=== PATIENT | male | born 1960 | race Caucasian/White ===

== ENCOUNTER 2022-08-29 06:10 | Inpatient (IN) | payer OTHER ==
[2022-08-29] VITALS (17 sets, daily range): BP systolic 95–141; BP diastolic 70–102
[~2022-08-29] VITALS: Ht 175.3 cm; Wt 127.5 kg
[2022-08-29 07:29] LABS: Thyroid Stimulating Hormone 1.11 uIU/mL (0.360-4.800)
[2022-08-29 07:30] LABS: Albumin, Blood 3.6 g/dL (3.4-5.0); Albumin/Globulin Ratio 1.1 (0.8-1.8); Bilirubin, Total 1.1 mg/dL (0.1-1.0); Calcium, Blood 8.7 mg/dL (8.5-10.1); Creatinine, Blood 0.76 mg/dL (0.60-1.20); Globulin, Blood 3.4 g/dL (2.2-4.0); Potassium, Blood 5.6 mmol/L (3.5-5.5)
[2022-08-29 07:44] LABS: Hematocrit 38.1 % (37.0-53.0); Hemoglobin 12.7 g/dL (13.5-17.5); Mean Corpuscular HGB 31.1 pg (26.0-34.0); Mean Corpuscular HGB Conc 33.3 g/dL (31.5-36.5); Mean Corpuscular Volume 93 fL (80-100); Platelet Count 167 K/mm3 (150-400); RDW Coefficient Variation 13.5 % (11.7-14.2); RDW Standard Deviation 46.4 fL (35.1-46.3); Red Blood Cell Count 4.08 M/mm3 (4.30-5.90)
[2022-08-29 08:07] LABS: BASOPHILS PERCENT MAN 1 % (0-2); EOSINOPHILS PERCENT MAN 0 % (0-6); LYMPHOCYTES PERCENT MAN 36 % (21-46); MONOCYTES PERCENT MAN 12 % (4-13); SEG NEUTROPHILS PERCENT MAN 51 % (41-73); TOTAL CELLS COUNTED 100
[2022-08-29 08:08] LABS: BASOPHILS ABSOLUTE AUTO 0.02 K/mm3 (0.00-0.23); BASOPHILS PERCENT AUTO 0 % (0-2); EOSINOPHILS ABSOLUTE AUTO 0.05 K/mm3 (0.00-0.68); EOSINOPHILS PERCENT AUTO 1 % (0-6); IMMATURE GRAN ABSOLUTE AUTO 0.03 K/mm3 (0.00-0.10); IMMATURE GRAN PERCENT AUTO 1 % (0-1); LYMPHOCYTES PERCENT AUTO 24 % (21-46); MONOCYTES ABSOLUTE AUTO 0.54 K/mm3 (0.16-1.47); MONOCYTES PERCENT AUTO 8 % (4-13); Mean Platelet Volume 14.2 fL (9.1-12.4); NEUTROPHILS ABSOLUTE AUTO 4.31 K/mm3 (1.96-9.15); NEUTROPHILS ABSOLUTE MAN 3.34 K/mm3 (1.96-9.15); NEUTROPHILS PERCENT AUTO 66 % (41-73); White Blood Cell Count 6.55 K/mm3 (4.00-11.30)
[2022-08-29 11:17] LABS: Anti-Xa UFH, PHA Monitoring <0.10 IU/mL; International Normalized Ratio 1.15
--- NOTE | 2022-08-29 12:11 | NUR ---
ASSUMED CARE: PT ARRIVED TO ROOM FROM ED. HR AFIB IN 140S-160S. TELE MONITOR CALLED AND STATED PT HAD 6 BEAT RUN OF VTACH. CARDIZEM GTT IS CURRENTLY AT 15 MG/HR. CALL TO DR BLANCHARD TO ADDRESS THIS AND SHE STATES SHE IS WITH NITRATE OPERATOR TO DISCUSS PT. AWAITING FURTHER ORDERS.
--- NOTE | 2022-08-29 13:46 | NUR ---
CALL TO DR BLANCHARD REGARDING PT'S HR. STATES SHE SPOKE WITH DR RUSH AND HE WAS CONSIDERING PLACING PT ON AMIODORONE. CALL TO DR RUSH WHO STATED HE WANTED TO COME SEE PT FIRST AND DETERMINE HEALTH HISTORY BEFORE ORDERING AMIODORONE. STATED NO NEW ORDERS AT THIS TIME AND AWARE THAT HR IS 140S-160S.
--- NOTE | 2022-08-29 16:47 | NUR ---
ECOMMERCE MARKETING SPECIALIST CALLED NURSE TO ALERT OF O2 SATURATION AT 83%. PT'S STATES PT SNORES AT HOME AND THAT SMOKED MEAT PREPARER TOLD THEM HE WAS SUSPICIOUS THAT PT HAS SLEEP APNEA. PLACED PT ON 2L O2 WITH SLEEP. RT AWARE.
--- NOTE | 2022-08-29 18:01 | NUR ---
CALL TO DR RUSH TO MAKE HIM AWARE OF PT'S HR SUSTAINING 140S EVEN WITH AMIODORONE GTT. DR INSTRUCTS TO GIVE ONE DOSE OF IV LOPRESSOR NOW AND REPEAT IN 30 MINUTES IF STILL TACHYCARDIC. PLAN IS FOR MAUDE AND CARDIOVERSION TOMORROW IF OK WITH ONCOMING DR. PT DENIES COMPLAINTS AT THIS TIME.
[2022-08-30] VITALS (11 sets, daily range): BP systolic 119–149; BP diastolic 67–135
[2022-08-30 01:47] LABS: BASOPHILS ABSOLUTE AUTO 0.02 K/mm3 (0.00-0.23); BASOPHILS PERCENT AUTO 0 % (0-2); EOSINOPHILS ABSOLUTE AUTO 0.04 K/mm3 (0.00-0.68); EOSINOPHILS PERCENT AUTO 1 % (0-6); Hemoglobin 12.6 g/dL (13.5-17.5); IMMATURE GRAN ABSOLUTE AUTO 0.04 K/mm3 (0.00-0.10); IMMATURE GRAN PERCENT AUTO 1 % (0-1); LYMPHOCYTES ABSOLUTE AUTO 1.73 K/mm3 (0.84-5.20); LYMPHOCYTES PERCENT AUTO 26 % (21-46); MONOCYTES PERCENT AUTO 9 % (4-13); Mean Corpuscular HGB 31.1 pg (26.0-34.0); Mean Corpuscular HGB Conc 33.2 g/dL (31.5-36.5); Mean Corpuscular Volume 94 fL (80-100); NEUTROPHILS ABSOLUTE AUTO 4.35 K/mm3 (1.96-9.15); NEUTROPHILS PERCENT AUTO 64 % (41-73); Platelet Count 153 K/mm3 (150-400); RDW Coefficient Variation 13.7 % (11.7-14.2); RDW Standard Deviation 47.6 fL (35.1-46.3); Red Blood Cell Count 4.05 M/mm3 (4.30-5.90); White Blood Cell Count 6.78 K/mm3 (4.00-11.30)
[2022-08-30 02:03] LABS: Magnesium, Blood 1.8 mg/dL (1.6-2.4)
[2022-08-30 02:15] LABS: Bun/Creatinine Ratio 23.9 (12.0-20.0); Calcium, Blood 8.5 mg/dL (8.5-10.1); Creatinine, Blood 0.96 mg/dL (0.60-1.20); Potassium, Blood 4.1 mmol/L (3.5-5.5)
--- NOTE | 2022-08-30 04:43 | NUR ---
SHIFT SUMMARY: PT ALERT AND ORIENTED X4, ABLE TO FOLLOW COMMANDS AND MAKE NEEDS KNOWN. BP STABLE, HR REMAINS AFIB 120'S-140'S, AFEBRILE, SATS >94% ON 2L NC. LOPRESSOR PUSH GIVEN X2 AT START OF SHIFT WITH LITTLE EFFECT. PT COMPLAINING OF INCREASING SHORTNESS OF BREATH AROUND 0000. CALL PLACED TO MD WITH UPDATE, NO NEW ORDERS RECEIVED. PT WITH MUTIPLE 4-8 BEAT RUNS OF VTACH THROUGHOUT THE NIGHT, ASYMPTOMATIC. REMAINS ON AMIO AND HEPARIN DRIP. PLAN FOR MAUDE AND CARDIOVERSION TODAY, PT NPO SINCE MIDNIGHT. SBA TO AND FROM BATHROOM, NO BM THIS SHIFT. BED IN LOW, CALL LIGHT IN REACH, WILL REPORT TO ONCOMING RN.
--- NOTE | 2022-08-30 07:36 | NUR ---
Received report from Noc Rn. Patient sitting up in bed watching TV. He is alert and oriented and is able to communicate his needs. He is independent in room with bathroom and repositioning. Family at bedside. MAEW. BENOIT. He has bilateral 20ga IV in both hands and infusing Heparin at 15 units/kg/hr and Amiodarone at 0.5 mg/hr HR 140-150's with symptomatic SOB.
--- NOTE | 2022-08-30 11:30 | NUR ---
Patient awake and sitting up in bed and has family at bedside. He is on RA and sats >90%. He continues on Heparin at 15 units/kg/min and Amiodarone at 1 mg/hr that Dr Ugalde increased at 0830. He is to have cardioversion today if ansesthesia is available. He remains in a-fib 130-150's and denies SOB currently. He is NPO per procedure. He has been up to bathroom with assistance.
--- NOTE | 2022-08-30 14:31 | NUR ---
Dr Ugalde called and wanted Amiodarone ge and received at 1322. he went to computer lab assistant with spouse at 1415 by wheelchair. VSS. He was just up to bathroom independently.
--- NOTE | 2022-08-30 15:21 | NUR ---
[id number] PATIENT WAS BROUGHT TO THE CATHLAB/TREATMENT ROOM BY WHEEL CHAIR BY CAMILLE COYLE RN ON HEPARIN AND AMIODARONE GTTS. WALKED TO THE BED AND PLACED ON MONITOR, IV, O2, AND DEFIB MONITOR AND MAUDE/ECHO MACHINE. PATIENT WAS INTERVIEWED AND CONSENTED BY ANESTHESIA AND CONSENT SIGNED. DR. MILLER, ANESTHESIA AND ECHO AND NURSING PERSONNEL ALL AT THE BEDSIDE AND PROCEDURE BEGUN. SEE SEDATION/PRECEDURE RECORD. PATIETN WAS RECOVERED IN THE [facility] BY CELESTE NIELSEN RN [facility] SBAR GIVEN TO CAMILLE COYLE RN. @ [phone]
--- NOTE | 2022-08-30 15:46 | NUR ---
Patient arrived back from cardioversion procedure via wheelchair and he is in SR 70's and EKG being done. Spoke with Dr Ugalde and patient will stay on Amiodarone at 1mg and will change to 0.5 at 2100 today. He will remain on Heparin at 15 units/kg/hr. He continues to be indepentent in room.
--- NOTE | 2022-08-30 18:26 | NUR ---
Patient remains in SR 70 and denies any SOB. He is on RA and sats >90%. He remains independent in room and by his side. Will pass on to reduce amiodarone down to 0.5 at 2100 for 18 hours. He tolerated dinner without any difficulty. His PowerGlide THAO infusing Amiodarone and left hand infusing Heparine at 15 units/kg/hr until tomorrow when Dr Ugalde re-evaluates.
[2022-08-31 03:27] VITALS: BP 143/72
--- NOTE | 2022-08-31 04:28 | NUR ---
SHIFT SUMMARY: PT REMAINS ALERT AND ORIENTED X4, BP STABLE, HR REMAINS SR 70'S THROUGHOUT THE NIGHT, NO COMPLAINTS OF CP/PRESSURE/SOB. AFEBRILE, SATS >96% ON 2L NC. AMIO TITRATED TO 17.3 ML/HR AT 2100 PER ORDERS. HEPARIN REMAINS AT 15 UNITS/HR. PT ABLE TO SLEEP MAJORITY OF THE NIGHT. SBA TO AND FROM BATHROOM. BED IN LOW, CALL LIGHT IN REACH, WILL REPORT TO ONCOMING RN.
[2022-08-31 07:57] VITALS: BP 136/77
--- NOTE | 2022-08-31 08:09 | NUR ---
AM NOTE PT ALERT, ORIENTED X4; CALM AND COOPERATIVE WITH CARE. PT RESTING IN BED, UP IN ROOM WITH SBA. PT DENIES PAIN, CHEST PAIN/PRESSURE, SOB, NAUSEA, DIZZINESS AND NUMB/TINGLING. TELE SINUS 70'S, BP STABLE. NO EDEMA NOTED. SPO2 >90% ON RA, BREATHING EVEN AND UNLABORED, PT ON O2 WHILE SLEEPING. ABD SOFT NONTENDER, +BT X4 QUAD. PT EDUCATED ON USING URINE FOR I&O. OTHER VSS. HEPARIN GTT PER ORDER. AMIO GTT PER ORDER. NO OTHER ACUTE CHANGES NOTED. WILL CONTINUE TO MONITOR UNTIL REPORT GIVEN TO ONCOMING RN.
[2022-08-31 11:32] VITALS: BP 139/81
[2022-08-31] MEDS ORDERED: ELIQUIS5 M2 PO (13:20)
[2022-08-31] MEDS ORDERED: FURO20 PO (13:21)
[2022-08-31] MEDS ORDERED: POTA10T PO (13:22)
[2022-08-31] MEDS ORDERED: Amiodarone HCl200 MG PO (13:26)
--- NOTE | 2022-08-31 15:30 | NUR ---
Discharge Summary No acute changes noted t/o shift. VSS. Pt had first dose of po amiodarone and apixaban. Pt and spouse educated on discharge instructions, follow up appointment and prescriptions. Pt strongly encouraged to follow up with pcp for a sleep study. Prescriptions sent to [facility], they did not have amiodarone and kcl in stock, called in to [facility] per family request. Work note provided to patient. Pt left on foot per request.
== END 2022-08-31 15:18 | disposition home or self-care (01) | DRG 308 ==
LOC: ER 06:10 → PCU 11:17
PROVIDERS: Emergency Medicine; ADMIT Family Medicine
PROC: B24BZZ4 Ultrasonography of Heart with Aorta, Transesophageal (ICD-10-PCS; principal; 2022-08-30)
PROC: 5A2204Z Restoration of Cardiac Rhythm, Single (ICD-10-PCS; 2022-08-30)
DX: I48.91 Unspecified atrial fibrillation (principal); I50.23 Acute on chronic systolic (congestive) heart failure; Z68.41 Body mass index [BMI] 40.0-44.9, adult; E66.01 Morbid (severe) obesity due to excess calories; G47.33 Obstructive sleep apnea (adult) (pediatric); E87.5 Hyperkalemia; D64.9 Anemia, unspecified; Z28.21 Immunization not carried out because of patient refusal; Z87.891 Personal history of nicotine dependence
CPT/HCPCS: 36415; 71045; 80048; 80053; 83735; 83880; 84132; 84443; 84484; 85025; 85520; 85610; 85730; 93005; 93010; 93306; 93312; 93325; 94762; 96365; 96366; 96375; 96376; 99285-25; A9270; C1751; G0378; J0282; J1644; J1940; J2704; J7030; J7060

== ENCOUNTER 2024-06-24 04:58 | Observation (INO) | payer OTHER ==
[~2024-06-24] VITALS: Ht 177.8 cm; Wt 117.9 kg
[~2024-06-24 04:58] MED LIST: Amiodarone HCl200 MG PO; ELIQUIS5 M2 PO; FURO20 PO; POTA10T PO
[2024-06-24] MEDS ORDERED: AMLO10 PO (05:20)
[2024-06-24] MEDS ORDERED: Metoprolol Tartrate 1 MG/ML 5 ML VIAL IV PRN (05:20)
[2024-06-24] MEDS ORDERED: GABA300 PO (05:21)
[2024-06-24 05:39] LABS: Hematocrit 36.1 % (37.0-53.0); Hemoglobin 12.3 g/dL (13.5-17.5); Mean Corpuscular HGB 31.4 pg (26.0-34.0); Mean Corpuscular HGB Conc 34.1 g/dL (31.5-36.5); Mean Corpuscular Volume 92 fL (80-100); Platelet Count 213 K/mm3 (150-400); RDW Coefficient Variation 13.2 % (11.7-14.2); RDW Standard Deviation 43.3 fL (35.1-46.3); Red Blood Cell Count 3.92 M/mm3 (4.30-5.90)
[2024-06-24] MEDS ORDERED: NS 1,000 ML IV SCH ×2 (05:40→06:20)
[2024-06-24 05:49] LABS: Mean Platelet Volume 13.7 fL (9.1-12.4); White Blood Cell Count 7.76 K/mm3 (4.00-11.30)
[2024-06-24 06:16] LABS: Alanine Aminotransfer (ALT/SGP 41 U/L (12-78); Albumin, Blood 3.1 g/dL (3.4-5.0); Albumin/Globulin Ratio 0.8 (0.8-1.8); Alk Phos 122 U/L (50-136); Anion Gap 13 mmol/L (3-11); Aspartate Aminotrans (AST/SGOT 20 U/L (12-37); Bilirubin, Total 0.8 mg/dL (0.1-1.0); Blood Urea Nitrogen 12 mg/dL (8-24); Bun/Creatinine Ratio 16.3 (12.0-20.0); CO2, Blood 21 mmol/L (21-32); Calcium, Blood 8.5 mg/dL (8.5-10.1); Chloride, Blood 113 mmol/L (98-108); Creatinine, Blood 0.74 mg/dL (0.60-1.20); Globulin, Blood 3.7 g/dL (2.2-4.0); Glomerular Filtration Rate 102 (60-); Glucose, Blood 121 mg/dL (70-99); Potassium, Blood 3.6 mmol/L (3.5-5.5); Sodium, Blood 143 mmol/L (136-145); Total Protein, Blood 6.8 g/dL (6.4-8.2)
[2024-06-24 06:19] LABS: BASOPHILS PERCENT MAN 0 % (0-2); EOSINOPHILS PERCENT MAN 0 % (0-6); LYMPHOCYTES ABSOLUTE MAN 1.86 K/mm3 (0.84-5.20); LYMPHOCYTES PERCENT MAN 24 % (21-46); METAMYELOCYTE ABSOLUTE MAN 0.23 K/mm3 (0.00-0.00); METAMYELOCYTE PERCENT MAN 3 % (0-0); MONOCYTES ABSOLUTE MAN 0.85 K/mm3 (0.16-1.47); MONOCYTES PERCENT MAN 11 % (4-13); NEUTROPHILS ABSOLUTE MAN 4.81 K/mm3 (1.96-9.15); SEG NEUTROPHILS PERCENT MAN 62 % (41-73); TOTAL CELLS COUNTED 100
[2024-06-24] MEDS ORDERED: Ondansetron HCl 2 MG / ML 2ML Vial IV PRN (06:20)
[2024-06-24] MEDS ORDERED: FLU VACC TS2024-25(6MOS UP)/PF 45 MCG/0.5 ML SYRINGE IM ONE (06:20)
[2024-06-24] MEDS ORDERED: Metoprolol Tartrate 25 MG Tab PO SCH (07:00)
[2024-06-24] MEDS ORDERED: Potassium Chloride 40 MEQ in NS 250 ML IV ONE (07:00)
[2024-06-24] MEDS ORDERED: Apixaban 5 MG Tab PO SCH (09:00)
[2024-06-24] MEDS ORDERED: Gabapentin 300 MG Cap PO SCH (09:00)
[2024-06-24] MEDS ORDERED: Furosemide 10 MG / ML 2ML Vial IV ONE (12:00)
[2024-06-24] MEDS ORDERED: Etomidate 2MG / ML 10ML Vial IV SCH (13:45)
[2024-06-24] MEDS ORDERED: FentaNYL Citrate 50 MCG/ML 2 ML Injection IV ONE (13:45)
[2024-06-24] MEDS ORDERED: METO50ER PO ×2 (15:16→15:18)
[2024-06-24 15:46] VITALS: BP 154/74
== END 2024-06-24 15:47 | disposition home or self-care (01) ==
LOC: ER 04:58 → ERHOLD 04:59
PROVIDERS: Student in an Organized Health Care Education/Training Program; ADMIT Internal Medicine
DX: I48.0 Paroxysmal atrial fibrillation (principal); I11.0 Hypertensive heart disease with heart failure; I50.30 Unspecified diastolic (congestive) heart failure; E66.01 Morbid (severe) obesity due to excess calories; Z68.37 Body mass index [BMI] 37.0-37.9, adult; Z79.01 Long term (current) use of anticoagulants; Z79.899 Other long term (current) drug therapy
CPT/HCPCS: 71045; 80053; 83690; 83735; 83880; 84484; 85025; 92960; 93005; 93010; 96365-59; 96366-59; 96375-59; 99152; 99153; 99285-25; A9270; G0378; J1940; J3010; J3480; J7030; J7050

== ENCOUNTER 2025-01-20 16:58 | Emergency (ER) | payer OTHER ==
[~2025-01-20] VITALS: Ht 172.7 cm; Wt 122.5 kg
[~2025-01-20 16:58] MED LIST changes: +AMLO10 PO; +GABA300 PO; +METO50ER PO
[2025-01-20 17:34] LABS: BASOPHILS ABSOLUTE AUTO 0.04 K/mm3 (0.00-0.23); BASOPHILS PERCENT AUTO 1 % (0-2); EOSINOPHILS ABSOLUTE AUTO 0.06 K/mm3 (0.00-0.68); EOSINOPHILS PERCENT AUTO 1 % (0-6); Hematocrit 39.0 % (37.0-53.0); Hemoglobin 12.7 g/dL (13.5-17.5); IMMATURE GRAN ABSOLUTE AUTO 0.08 K/mm3 (0.00-0.10); IMMATURE GRAN PERCENT AUTO 1 % (0-1); LYMPHOCYTES ABSOLUTE AUTO 2.70 K/mm3 (0.84-5.20); LYMPHOCYTES PERCENT AUTO 32 % (21-46); MONOCYTES ABSOLUTE AUTO 0.85 K/mm3 (0.16-1.47); MONOCYTES PERCENT AUTO 10 % (4-13); Mean Corpuscular HGB Conc 32.6 g/dL (31.5-36.5); Mean Corpuscular Volume 95 fL (80-100); NEUTROPHILS ABSOLUTE AUTO 4.72 K/mm3 (1.96-9.15); NEUTROPHILS PERCENT AUTO 56 % (41-73); NRBC ABSOLUTE 0.00 K/mm3 (0.00-0.02); NRBC Auto 0.0 /100 WBC (0.0-0.2); Platelet Count 180 K/mm3 (150-400); RDW Coefficient Variation 13.2 % (11.7-14.2); RDW Standard Deviation 45.6 fL (35.1-46.3)
[2025-01-20] MEDS ORDERED: FentaNYL Citrate 50 MCG/ML 2 ML Injection IV ONE (17:45)
[2025-01-20] MEDS ORDERED: Midazolam HCl 1MG / ML 2ML Vial IV ONE (17:45)
[2025-01-20 17:50] LABS: Alanine Aminotransfer (ALT/SGP 34.0 U/L (12-78); Albumin, Blood 3.4 g/dL (3.4-5.0); Albumin/Globulin Ratio 1.0 (0.8-1.8); Anion Gap 10.0 mmol/L (3-11); Aspartate Aminotrans (AST/SGOT 23.0 U/L (12-37); Bilirubin, Total 0.6 mg/dL (0.1-1.0); Blood Urea Nitrogen 20.0 mg/dL (8-24); CO2, Blood 21.0 mmol/L (21-32); Calcium, Blood 8.3 mg/dL (8.5-10.1); Chloride, Blood 110.0 mmol/L (98-108); Creatinine, Blood 0.82 mg/dL (0.60-1.20); Globulin, Blood 3.4 g/dL (2.2-4.0); Glucose, Blood 96.0 mg/dL (70-99); Potassium, Blood 4.2 mmol/L (3.5-5.5); Sodium, Blood 137.0 mmol/L (136-145); Total Protein, Blood 6.8 g/dL (6.4-8.2)
[2025-01-20 18:30] VITALS: BP 122/69
[2025-01-20 18:53] LABS: Magnesium, Blood 1.7 mg/dL (1.6-2.4); Thyroid Stimulating Hormone 1.07 uIU/mL (0.360-4.800)
== END 2025-01-20 18:59 | disposition home or self-care (01) ==
LOC: ER 16:58
PROVIDERS: Emergency Medicine; Student in an Organized Health Care Education/Training Program
DX: I48.91 Unspecified atrial fibrillation (principal); Z79.01 Long term (current) use of anticoagulants; Z79.899 Other long term (current) drug therapy; Z87.891 Personal history of nicotine dependence
CPT/HCPCS: 71046; 80053; 83690; 83735; 84439; 84443; 84484; 85025; 93005; 93010; J2250; J3010

== ENCOUNTER 2025-05-22 10:07 | Emergency (ER) | payer OTHER ==
[~2025-05-22] VITALS: Ht 175.3 cm; Wt 117.9 kg
[2025-05-22] MEDS ORDERED: Ipratropium/Albuterol SulF 2.5-0.5MG/3 ML Amp INH ONE (10:40)
[2025-05-22 11:10] LABS: BASOPHILS ABSOLUTE AUTO 0.03 K/mm3 (0.00-0.23); BASOPHILS PERCENT AUTO 1 % (0-2); EOSINOPHILS ABSOLUTE AUTO 0.07 K/mm3 (0.00-0.68); EOSINOPHILS PERCENT AUTO 1 % (0-6); Hematocrit 40.1 % (37.0-53.0); Hemoglobin 13.1 g/dL (13.5-17.5); IMMATURE GRAN ABSOLUTE AUTO 0.04 K/mm3 (0.00-0.10); IMMATURE GRAN PERCENT AUTO 1 % (0-1); LYMPHOCYTES ABSOLUTE AUTO 1.73 K/mm3 (0.84-5.20); LYMPHOCYTES PERCENT AUTO 27 % (21-46); MONOCYTES ABSOLUTE AUTO 0.65 K/mm3 (0.16-1.47); MONOCYTES PERCENT AUTO 10 % (4-13); Mean Corpuscular HGB Conc 32.7 g/dL (31.5-36.5); Mean Corpuscular Volume 96 fL (80-100); NEUTROPHILS ABSOLUTE AUTO 3.79 K/mm3 (1.96-9.15); NEUTROPHILS PERCENT AUTO 60 % (41-73); NRBC ABSOLUTE 0.00 K/mm3 (0.00-0.02); NRBC Auto 0.0 /100 WBC (0.0-0.2); Platelet Count 181 K/mm3 (150-400); RDW Coefficient Variation 14.1 % (11.7-14.2); RDW Standard Deviation 49.3 fL (35.1-46.3)
[2025-05-22] MEDS ORDERED: Diltiazem HCl 5 MG / ML 5ML Vial IV ONE (11:20)
[2025-05-22 11:41] LABS: Alanine Aminotransfer (ALT/SGP 31.0 U/L (12-78); Albumin, Blood 3.5 g/dL (3.4-5.0); Albumin/Globulin Ratio 1.1 (0.8-1.8); Anion Gap 9.0 mmol/L (3-11); Aspartate Aminotrans (AST/SGOT 12.0 U/L (12-37); Bilirubin, Total 0.8 mg/dL (0.1-1.0); Blood Urea Nitrogen 13.0 mg/dL (8-24); CO2, Blood 25.0 mmol/L (21-32); Calcium, Blood 8.8 mg/dL (8.5-10.1); Chloride, Blood 111.0 mmol/L (98-108); Creatinine, Blood 0.83 mg/dL (0.60-1.20); Globulin, Blood 3.1 g/dL (2.2-4.0); Glucose, Blood 110.0 mg/dL (70-99); Magnesium, Blood 2.1 mg/dL (1.6-2.4); Potassium, Blood 4.2 mmol/L (3.5-5.5); Sodium, Blood 141.0 mmol/L (136-145); Total Protein, Blood 6.6 g/dL (6.4-8.2)
[2025-05-22 11:59] LABS: Influenza A, PCR NEGATIVE (NEGATIVE); Influenza B, PCR NEGATIVE (NEGATIVE); Resp Syncytial Virus, PCR NEGATIVE (NEGATIVE); SARS-Cov-2 (COVID-19) PCR, MMC NEGATIVE (NEGATIVE)
[2025-05-22] MEDS ORDERED: NS 1,000 ML IV SCH (13:30)
[2025-05-22] MEDS ORDERED: Propofol 10mg/ml 20 ml Vial (Procedural) IV SCH (13:30)
[2025-05-22 15:15] VITALS: BP 127/80
[2025-05-22] MEDS ORDERED: METO50ER PO (15:38)
== END 2025-05-22 15:53 | disposition home or self-care (01) ==
LOC: ER 10:07
PROVIDERS: Student in an Organized Health Care Education/Training Program
DX: I48.91 Unspecified atrial fibrillation (principal); R60.9 Edema, unspecified; R06.02 Shortness of breath; I10 Essential (primary) hypertension; Z87.891 Personal history of nicotine dependence; Z79.01 Long term (current) use of anticoagulants; Z79.899 Other long term (current) drug therapy
CPT/HCPCS: 71046; 80053; 83735; 83880; 84484; 85025; 87637; 92960; 93005; 93010; 96365-59; 96376-59; 99285-25; A9270; J2704; J7030